=== PATIENT | female | born 1960 | race Two or more races ===

== ENCOUNTER 2025-05-15 15:56 | Emergency (ER) | payer MEDICARE, MEDICAID ==
[~2025-05-15] VITALS: Ht 167.6 cm; Wt 81.8 kg
[2025-05-15 16:12] VITALS: TEMP 98.7
[2025-05-15 16:15] LABS: PLATELET COUNT (AUTO) 223 K/uL (150-450); RED BLOOD CELL COUNT(AUTO) 4.35 MIL/uL (4.00-5.20); RED CELL DISTRIBUTION WIDTH 14.1 % (11.5-14.5); WHITE BLOOD COUNT (AUTO) 6.3 K/uL (4.5-11.0)
[2025-05-15] MEDS: LIDOCAINE 1% 10 ML VIAL SQ ONE (16:19)
[2025-05-15] MEDS: SODIUM CHLORIDE 0.9% 1,000 ML IV ONE (16:20)
[2025-05-15 16:22] LABS: CALCIUM, TOTAL 8.8 mg/dL (8.8-10.5); CREATININE 0.94 mg/dL (0.60-1.30); GLOMERULAR FILTR. RATE CALC 60.0 mL/min (>60); GLUCOSE,RANDOM 139.0 mg/dL (70-110); SODIUM SERUM 139.0 mmol/L (136-145); UREA NITROGEN, BLOOD 22.0 mg/dL (7-18)
[2025-05-15] MEDS ORDERED: IOHEXOL 350 MG/ML 100 ML VIAL ONE (16:33)
[2025-05-15] MEDS ORDERED: SODIUM CHLORIDE 0.9% 0 ML ONE (16:33)
[2025-05-15] MEDS ORDERED: 0.9% SODIUM CHLORIDE 10 ML SYRINGE IVP ONE (16:33)
[2025-05-15] MEDS: CeFAZolin 1 GM/DEXTROSE 50 ML IV ONE (17:30)
[2025-05-15] MEDS: PERTUSS(ACELL),DIPH,TET/PF 0.5 ML SYRINGE [ADULT] IM. ONE (17:30)
[2025-05-15] MEDS ORDERED: CEPH-558 PO (17:38)
[2025-05-15 21:05] VITALS: BP 146/70; PULSE 80; RESP 18; O2SAT 98
[2025-05-15] MEDS ORDERED: TRAM50TA5 PO (21:09)
== END 2025-05-15 20:45 | disposition home or self-care (01) ==
LOC: EMS 15:59
DX: S51.811A Laceration without foreign body of right forearm, initial encounter (principal); E11.9 Type 2 diabetes mellitus without complications; I10 Essential (primary) hypertension; Z88.1 Allergy status to other antibiotic agents; Z90.5 Acquired absence of kidney; Z85.9 Personal history of malignant neoplasm, unspecified; Z88.8 Allergy status to other drugs, medicaments and biological substances; X58.XXXA Exposure to other specified factors, initial encounter; Y93.89 Activity, other specified; Y92.89 Other specified places as the place of occurrence of the external cause; Y99.8 Other external cause status
CPT/HCPCS: 12002; 12032; 13122; 73200; 80048; 82962; 85025; 90471; 90715; 96361; 96365; 99285; J0690; J3490; J7030; J7050; 36415-L1; 36415-TC